=== PATIENT | female | born 1970 | race Caucasian/White ===

== ENCOUNTER → 2017-10-13 | Outpatient (CLI) | payer OTHER ==
[~2017-10-13] MED LIST: ESCI10TA17 PO; ESTR1TAB2 PO
--- NOTE | 2017-10-14 13:38 | MAMMOGRAPHY REPORT ---
BILATERAL DIGITAL SCREENING MAMMOGRAM TOMOSYNTHESIS WITH CAD: 10/13/2017 CLINICAL HISTORY: Routine screening. Patient has no complaints. TECHNIQUE: Breast tomosynthesis in addition to standard 2D mammography was performed. Current study was also evaluated with a Computer Aided Detection (CAD) system. COMPARISON: Comparison is made to exams dated: 10/12/2016 mammogram, 10/09/2015 mammogram, 10/01/2014 mammogram, 09/24/2013 mammogram, 09/21/2012 mammogram, and 09/20/2011 mammogram - [facility]. BREAST COMPOSITION: The tissue of both breasts is almost entirely fatty. FINDINGS: No suspicious masses, calcifications, or areas of architectural distortion are noted in ei ther breast. There has been no significant interval change compared to prior exams. Scattered bilater al benign-appearing calcifications are not significantly changed. IMPRESSION: ACR BI-RADS CATEGORY 2: BENIGN There is no mammographic evidence of malignancy. A 1 year screening mammogram is recommended. The pa tient will receive written notification of the results. Approximately 10% of breast cancers are not detected with mammography. A negative mammographic report should not delay biopsy if a clinically suggestive mass is present. Radha Chambers M.D. /:10/13/2017 16:48:13 Bicycle Designer: Paige PANDA(Leonard)(M), [facility] letter sent: Normal 1/2 BI-RADS Code: ACR BI-RADS Category 2: Benign
== END | disposition home or self-care (01) ==
LOC: C.MAMM 16:00
PROVIDERS: ATTEND Nurse Practitioner
DX: Z12.31 Encounter for screening mammogram for malignant neoplasm of breast (principal)

== ENCOUNTER → 2018-03-01 | Outpatient (CLI) | payer OTHER ==
--- NOTE | 2018-03-01 16:05 | DIAGNOSTIC IMAGING REPORT ---
ULTRASOUND R VENOUS DOPP LOWER EXT UNILAT CLINICAL HISTORY: M79.604 Right leg pain, warmth and swelling on medial right COMPARISON STUDY: No previous studies for comparison. FINDINGS: Real-time and color flow Doppler imaging were performed. Flow was seen within the femoral, popliteal and calf veins with no intraluminal thrombus demonstrated. The saphenous vein is patent. There is a right popliteal cyst measuring 52 x 24 x 15 mm. IMPRESSION: 1. No evidence of right lower extremity DVT 2. Right popliteal cyst Electronically signed by: Dhaval Herrera M.D. 03/01/2018 4:03 PM Dictated Date/Time: 03/01/2018 4:03 PM
== END | disposition home or self-care (01) ==
LOC: C.ULTRBC 14:49
PROVIDERS: ATTEND Physician Assistant Medical
DX: M79.604 Pain in right leg (principal)

== ENCOUNTER 2023-11-29 07:11 | Observation (INO) ==
--- NOTE | 2023-10-24 13:44 | PAT Medication Instructions ---
Medication Instructions Date of Service October 24, 2023 Home Medications Medication Instructions Recorded escitalopram oxalate 5 mg tablet 5 mg PO QAM #90 tabs 12/14/22 lorazepam 0.5 mg tablet 0.5 mg PO DAILY PRN anxiety #30 03/07/23 tabs estradiol 1 mg tablet 1 mg PO QAM #90 tabs 08/08/23 lisinopril 20 mg tablet 20 mg PO QAM #90 tabs 09/12/23 escitalopram oxalate 5 mg tablet 5 mg PO QAM lorazepam 0.5 mg tablet 0.5 mg PO DAILY PRN estradiol 1 mg tablet 1 mg PO QAM lisinopril 20 mg tablet 20 mg PO QAM atorvastatin 20 mg tablet (Lipitor) 20 mg PO QPM etodolac 400 mg tablet 400 mg PO BID PRN omeprazole 20 mg tablet,delayed release 20 mg PO QAM Continue as directed lorazepam 0.5 mg tablet 0.5 mg PO DAILY PRN(if needed) ASK your surgeon for instructions etodolac 400 mg tablet 400 mg PO BID PRN ASK your prescriber and surgeon estradiol 1 mg tablet 1 mg PO QAM DO NOT take the morning of surgery lisinopril 20 mg tablet 20 mg PO QAM Take morning of surgery With a small sip of water, OTHERWISE NOTHING TO EAT OR DRINK AFTER MIDNIGHT: escitalopram oxalate 5 mg tablet 5 mg PO QAM omeprazole 20 mg tablet,delayed release 20 mg PO QAM Take evening before surgery atorvastatin 20 mg tablet (Lipitor) 20 mg PO QPM Other Notes If you have any questions please call us at [phone] or [phone] or [phone] or [phone]
--- NOTE | 2023-10-28 09:20 | Anesthesiology Consultation ---
Date of Service October 28, 2023 Assessment & Plan (1) Encounter for pre-operative examination: - Infectious disease screening: Per assessment on 10/28/23: No known infectious disease contacts or current infectious disease symptoms. No noted recent Covid positive test result. - Outpatient joint assessment: Pt currently scheduled for inpatient pathway. If surgeon requests review for outpatient joint pathway, patient is an acceptable candidate for outpatient joint program from anesthesia standpoint pending surgeon's office assessment that patient is motivated, has good support and completes Same Day Joint Program preop requirements. Chart Review Chart Review: Acceptable Risk for Surgery and Patient seen in Pre Admission Testing Teaching & Discussion Pre-Anesthesia Teaching/Discussion Notes: Instructed NPO after midnight before surgery,except medications with 15 cc of water. Medication instructions provided according to the PAT guidelines. History Surgery Operation Date: 11/29/23 07:15 Proposed Procedures p Left Total Hip Arthroplasty Anterior - Noé Banks, Height/Weight Height: 4 ft 11 in Weight: 79.8 kg Allergies Allergy/AdvReac Type Severity Reaction Status Date / Time No Known Allergies Allergy Unknown Verified 10/24/23 09:42 Medications Home Medications Medication Instructions Recorded Confirmed Last Taken escitalopram oxalate 5 mg tablet 5 mg PO QAM #90 tabs 12/14/22 10/24/23 Unknown lorazepam 0.5 mg tablet 0.5 mg PO DAILY PRN anxiety #30 03/07/23 10/24/23 Unknown tabs estradiol 1 mg tablet 1 mg PO QAM #90 tabs 08/08/23 10/24/23 Unknown lisinopril 20 mg tablet 20 mg PO QAM #90 tabs 09/12/23 10/24/23 Unknown atorvastatin 20 mg tablet (Lipitor) 20 mg PO QPM 10/24/23 10/24/23 Unknown etodolac 400 mg tablet 400 mg PO BID PRN Pain 10/24/23 10/24/23 Unknown omeprazole 20 mg tablet,delayed 20 mg PO QAM 10/24/23 10/24/23 Unknown release Past Medical History Medical History Anxiety Hyperlipidemia History of colon polyps History of COVID-19 Dx 2020- fever, fatigue, loss of taste/smell > resolved HTN (hypertension), benign Papilloma of right breast Depression Obesity Exercise / Class Metabolic Activity II 4-5 Yardwork/Stairs/Walk up hill (one FS (no CP, no SOB)) Past Family History Family History Father Prostate cancer Hypertension Colonic polyp Mother Family history of reaction to anesthesia nausea/vomiting Denies family history of Ovarian cancer Diabetes Myocardial infarction Colorectal cancer Past Surgical History Surgical History History of benign breast biopsy History of carpal tunnel surgery of right wrist History of colonoscopy History of bilateral salpingo-oophorectomy (BSO) History of wisdom tooth extraction H/O umbilical hernia repair H/O: hysterectomy History of delivery Hx of tonsillectomy Past Anesthesia History No Hx of Anesthesia Complications and No Family Hx of Anesthesia Complications (except mother- PONV) History of PONV No Hx of PONV and Hx of Motion Sickness (Cars) Social History Smoking Status: Never smoker Do You Dip or Chew Tobacco: No Hx Alcohol Use: Yes alcohol intake frequency: a few times a month Hx Substance Use: No substance use type: does not use Review of Systems Patient denies chest pain, shortness of breath, dyspnea on exertion, fever, chills, cough, wheezing, palpitations. Physical Exam Vital Signs VITALS BP 142/85 P 70 TEMP 98.0 SP02 100%RA RESP 18 PHYSICAL Full cervical extension range of motion. Full TMJ range of motion. TMD 3 finger breaths Mallampati Score 1 Dentition: lower partial Lungs: clear throughout to auscultation Cardiac: regular rate and rhythm, no murmurs noted Spine: normal Carotid arteries: negative bruit Extremities: no LE edema Lab Results Anesthesia Preop Results Results Anesthesia Widget: WBC 3.93 K/ul (4.8-10.8) L 10/28/23 Hgb 12.1 g/dl (12.0-16.0) 10/28/23 Hct 36.0 % (37.0-47.0) L 10/28/23 Plt 209 K/uL (130-400) 10/28/23 Na 142 mmol/L (136-145) 10/28/23 K 4.3 mmol/L (3.5-5.1) 10/28/23 Cl 107 mmol/L (98-107) 10/28/23 CO2 29 mmol/L (21-32) 10/28/23 BUN 14 mg/dl (6-23) 10/28/23 Creat 0.74 mg/dl (0.6-1.2) 10/28/23 Glucose Level 85 mg/dl (70-99(Fasting)) 10/28/23 PT 11.0 Seconds (9.0-12.0) 10/28/23 PTT 25 Seconds (21-31) 10/28/23 INR 1.0 (0.9-1.1) 10/28/23 Blood Type A Positive 10/28/23 Antibody Screen NEGATIVE 10/28/23 Testing Electrocardiogram Date: 10/28/23 NSR at 75bpm. "Normal ECG" Chest X-Ray Date: 10/28/23 FINDINGS: Lung volumes are normal. Lungs are clear. There is no pneumothorax or pleural effusion. Cardiac size is normal. Mediastinal contours are normal. There is no evidence for pulmonary edema. IMPRESSION: No acute cardiopulmonary findings.
--- NOTE | 2023-11-24 12:11 | History & Physical Report ---
Date of Service November 24, 2023 Assessment & Plan (1) Hip arthritis: We will proceed with a left anterior total of arthroplasty. Postoperatively she will be started on aspirin for DVT prophylaxis and kept overnight in the hospital for postop medical management. She plans to use energy physical therapy upon discharge. History of Present Illness Chief Complaint: Osteoarthritis of the left hip. Primary Care Provider: Portia Carrington MD Carla is a pleasant 53-year-old female who has been dealing with chronic increasing left hip and groin pain. It has been going on for 10 years. It is to the point where she cannot live with it anymore. She is having pain with internal and external rotation. She has seen my partners. She has had injections and conservative treatment. Unfortunately, she continues to have pain. X-rays and clinical examination been diagnostic for advanced arthritis of the left hip. After failed conservative treatment, she has elected to proceed with a left anterior total of arthroplasty. Allergies Allergy/AdvReac Type Severity Reaction Status Date / Time No Known Allergies Allergy Unknown Verified 11/11/23 13:01 Home Medications Medication Instructions Recorded Confirmed Type estradiol 1 mg tablet 1 mg PO QAM #90 tabs 08/08/23 11/11/23 Rx lisinopril 20 mg tablet 20 mg PO QAM #90 tabs 09/12/23 11/11/23 Rx etodolac 400 mg tablet 400 mg PO BID PRN Pain 10/24/23 11/11/23 History omeprazole 20 mg tablet,delayed 20 mg PO QAM 10/24/23 11/11/23 History release amoxicillin 875 mg-potassium 1 tab PO Q12H #20 tabs 11/01/23 11/11/23 Rx clavulanate 125 mg tablet atorvastatin 20 mg tablet (Lipitor) 20 mg PO QPM #90 tabs 11/11/23 11/11/23 Rx escitalopram oxalate 5 mg tablet 5 mg PO QAM #90 tabs 11/11/23 11/11/23 Rx lorazepam 0.5 mg tablet 0.5 mg PO DAILY PRN anxiety #30 11/11/23 11/11/23 Rx tabs Past Med/Surg History Medical History Anxiety Hyperlipidemia History of colon polyps History of COVID-19 Dx 2020- fever, fatigue, loss of taste/smell > resolved HTN (hypertension), benign Papilloma of right breast Depression Obesity Surgical History History of benign breast biopsy History of carpal tunnel surgery of right wrist History of colonoscopy History of bilateral salpingo-oophorectomy (BSO) History of wisdom tooth extraction H/O umbilical hernia repair H/O: hysterectomy History of delivery Hx of tonsillectomy Family History Father Prostate cancer Hypertension Colonic polyp Mother Family history of reaction to anesthesia nausea/vomiting Denies family history of Ovarian cancer Diabetes Myocardial infarction Colorectal cancer Social History Smoking Status: Never smoker Second Hand Exposure: No; Do You Dip or Chew Tobacco: No; Hx Alcohol Use: Yes Hx Substance Use: No Preferred Language: [place] Communication Ability: Effective Nipple Maker Required: No Beliefs That Will Affect Care: None marital status: Current Living Situation: Spouse current occupational status: employed 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 Physical Exam On physical examination of the left hip, she has decreased range of motion. She has pain with forced internal/external rotation.. Constitutional WD/WN, vitals as above Eyes PERRL, conjunctivae normal, anicteric sclerae ENMT external ear and nose normal, oropharynx normal Neck trachea midline, no thyromegaly Respiratory normal respiratory effort Cardiovascular RRR, no murmur, no edema Gastrointestinal (Abdomen) normal bowel sounds, soft, nontender, no hepatosplenomegaly Psychiatric A+Ox3, euthymic affect Results & Data Results & Data Laboratory Results . Diagnostic Findings X-rays of the left hip show advanced osteoarthritis with joint space narrowing, osteophyte formation, and [id number] articulation. PG Care Time/CCT Total # of Minutes Spent Total Time Spent with Patient: Total time spent is greater than 50% in coordination of care (as documented) at patient's floor/unit and/or counseling patient: Coding Level of Care Code None Diagnoses Hip arthritis M16.10
[~2023-11-29 07:11] MED LIST changes: +ACETAMINOPHEN 500 MG TAB PO SCH; +BUPIVACAINE 0.5 % 5 MG/1 ML PF 10ML VIAL ONE; -ESCI10TA17 PO; -ESTR1TAB2 PO; +FAMOTIDINE 20 MG TAB PO SCH; +GABAPENTIN 900 MG DOSE PO SCH; +LR 500ML BOLUS, THEN 15ML/HR IV SCH; +LR 60ML/HR IV SCH; +ROPIV 0.5% 246mg, Ketorolac 30mg, EPINEPHrine 0.5mg in NSS INFIL SCH; +TRANEXAMIC ACID 1,000 MG **IV Intra-op IV SCH; +TRANEXAMIC ACID 1,000 MG **IV Pre-op IV SCH; +ceFAZolin 2000MG 2,000 MG/15 ML SYR IV SCH; +dexAMETHasone**PF** 10 MG/ML VIAL IV SCH
[2023-11-29] MEDS ORDERED: fentaNYL citrate PF 100 MCG/2 ML VIAL IV PRN (08:11)
[2023-11-29] MEDS ORDERED: ONDANSETRON INJ 2 MG/ML 2 ML VIAL IV PRN ×2 (08:11→12:22)
[2023-11-29] MEDS ORDERED: ePHEDrine sulfate 50 MG/ML AMP IV PRN (08:11)
[2023-11-29] MEDS ORDERED: FLUMAZENIL 0.1 MG/1 ML 10 ML VIAL IV PRN (08:11)
[2023-11-29] MEDS ORDERED: HYDROmorphone INJ 1 MG/ML SYRINGE IV PRN (08:11)
[2023-11-29] MEDS ORDERED: PROMETHAZINE HCL 12.5 MG in SODIUM CHLORIDE 0.9% 50 ML IV PRN (08:11)
[2023-11-29] MEDS ORDERED: ATROPINE SULFATE 0.1 MG/ML 10ML SYR IV PRN (08:11)
[2023-11-29] MEDS ORDERED: NALOXONE HCL 0.4 MG/1 ML VIAL/CARP IV PRN ×2 (08:11→12:22)
[2023-11-29] MEDS ORDERED: MIDAZOLAM HCL 1 MG/ML 2ML VIAL ONE (08:20)
[2023-11-29] MEDS ORDERED: PROPOFOL IV EMULSION 10 MG/ML 20 ML VIAL IV ONE ×2 (08:20→10:41)
--- NOTE | 2023-11-29 08:37 | History & Physical Bridge Note ---
Date of Service November 29, 2023 History & Physical Bridge Note I have examined the patient, reviewed the History & Physical and in the interval since the performance of the History & Physical I have noted the following changes of clinical significance: no changes noted
[2023-11-29] MEDS ORDERED: ORTHO JOINT ANESTHETIC ONE (08:39)
--- NOTE | 2023-11-29 10:38 | Fluoroscopy Report ---
FL hip LT 1V CLINICAL HISTORY: LT ANTERIOR ANA LUISA TECHNIQUE: 1 views were obtained with the C-arm in the OR with the above procedure. Total fluoroscopy time was 16.6 seconds. Radiation dose was 1.58 mGy. Comparison: Comparison is made to left hip radiograph 09/25/2023 FINDINGS/IMPRESSION: Intraoperative images were obtained of left anterior total hip arthroplasty. Please correlate with intraoperative fluoroscopy and operative report. ACT 112: Negative or not required by law. Electronically signed by: Yoel Christianson M.D. 11/29/2023 10:37 AM
--- NOTE | 2023-11-29 11:11 | Operative Report ---
PG Post Operative Report Pre & Post Diagnosis Operation Date: 11/29/23 08:55 Pre-Op Diagnosis: Degenerative Joint Disease Hip Left Post-Op Diagnosis: Degenerative Joint Disease Hip Left I identified the patient and participated in the time-out.: Yes Procedure Operation Date: 11/29/23 08:55 Actual Procedures p Left Anterior Total Hip Arthroplasty(Left) - Noé Banks DO Surgeon Noé Banks DO Soil Scientist None Estimated Blood Loss 350 Findings Consistent with Post-Op Diagnosis Specimens Left femoral head Description of Procedure Implants used I used a [employer] total hip arthroplasty system with a size 4 Taperloc stem, a 46 mm G7 cup with a 25mm screw, an E1 polyethylene liner, a 32 mm ceramic head with a -3 neck. Carla arrived at the hospital for the above procedure. She was seen in the preoperative holding area and the operative extremity was identified and signed. She was given a spinal anesthetic, a preoperative antibiotic, and TXA. She was then taken back to the operating room and laid on the table in the supine position. She was given basic sedation. The operative leg was secured to a ristst leg positioner. The hip was then prepped and draped in sterile fashion. A timeout was done and the patient and the operative extremity was properly identified. An anterior approach was used. Dissection was taken down through the fascia and the tensor muscle belly was retracted laterally and the rectus was retracted medially. The circumflex vessels were identified and ligated. The capsule was then incised and tagged for later repair. The femoral neck was then cut and the femoral head was removed. The acetabulum was exposed. Time was spent doing a complete circumferential labral release. Sequential reaming of the acetabulum up to a size 45 reamer was done. Final reamings were done under fluoroscopy to ensure appropriate version. A Biomet 46 mm G7 cup was then impacted into place. A single 25 mm screw was placed. The E1 polyethylene liner was then snapped into place. Surrounding soft tissues were then injected with 100 cc of an orthopedic pain control cocktail. The proximal femur was then exposed. Sequential broaching up to a size 4 broach was done. Off that broach a size 32 head with a -3 neck was trialed. The hip was reduced and fluoroscopic images showed anatomic alignment of the implants in acceptable length. The broach was removed. The final size 4 Taperloc stem was then impacted into place. A ceramic 32 mm head with a -3 neck was then impacted onto the stem and the hip was reduced. Final fluoroscopic images showed anatomic alignment of the hip. The capsule was then closed with #1 Vicryl suture. A dilute betadyne lavage was then done for 3 minutes. The joint was then irrigated with normal saline solution. The fascia was closed with #1 PDS suture. Skin was closed with 2-0 Vicryl, lilibeth, and a Silverlon dressing. She was then transferred to a hospital bed and taken to the post anesthesia care unit in stable condition. She tolerated the procedure well. I attest to the content of the Intraoperative Record and any orders documented therein. Any exceptions are noted below.
--- NOTE | 2023-11-29 11:49 | Anesthesiology Progress Note ---
Date of Service November 29, 2023 Anesthesia Post Procedure Vital Signs Vital Signs: Temp Pulse Resp BP Pulse Ox O2 Del Method O2 Flow Rate 11/29/23 11:35 74 15 119/71 94 Room Air 11/29/23 11:25 77 13 132/75 99 Room Air 11/29/23 11:15 89 16 116/73 100 Room Air 11/29/23 11:05 84 19 122/72 100 Oxymask 8 11/29/23 10:55 72 17 101/57 L 100 Oxymask 8 11/29/23 10:48 36 C L 79 15 101/54 L 100 Oxymask 8 11/29/23 08:01 36.6 C 75 20 152/89 H 95 Room Air Pain Intensity Generalized: Pain Intensity: 3 Transfer of Care Handoff Completed per policy Notes Mental Status: alert / awake / arousable Patient Amnestic to Procedure: Yes Nausea / Vomiting: adequately controlled Pain: adequately controlled Airway Patency, RR, SpO2: stable & adequate BP & HR: stable & adequate Hydration State: stable & adequate Neuraxial Anesthesia: was administered and sensory block is resolving Anesthetic Complications: no major complications apparent
--- NOTE | 2023-11-29 11:52 | XRay Report ---
XR hip 1V LT w pelvis CLINICAL HISTORY: IN PACU - Post Surgical TECHNIQUE: 1 view of the left hip and single frontal view of the pelvis were obtained. Comparison: Comparison is made to hip radiograph 10/25/2023 FINDINGS: Patient is status post total hip arthroplasty with expected postsurgical changes including soft tissu e swelling and subcutaneous emphysema. IMPRESSION: Expected postoperative appearance status post placement of total hip arthroplasty. ACT 112: Negative or not required by law. Electronically signed by: Yoel Christianson M.D. 11/29/2023 11:50 AM
[2023-11-29] MEDS ORDERED: bisacodyL 10 MG SUPP PR PRN (12:22)
[2023-11-29] MEDS ORDERED: oxyCODONE HCL IR 5 MG TAB (IMMEDIATE RELEASE) PO PRN (12:22)
[2023-11-29] MEDS ORDERED: HYDROmorphone INJ 0.5 MG/0.5 ML SYR IV PRN (12:22)
[2023-11-29] MEDS ORDERED: MAGNESIUM HYDROXIDE SUSP 30 ML UDC PO PRN (12:22)
[2023-11-29] MEDS ORDERED: SODIUM CHLORIDE 0.9% 1,000 ML IV SCH (12:22)
[2023-11-29] MEDS ORDERED: LORazepam 0.5 MG TAB PO PRN (12:22)
[2023-11-29] MEDS ORDERED: METOCLOPRAMIDE HCL INJ 5 MG/ML 2 ML VIAL IV PRN (12:22)
[2023-11-29] MEDS: KETOROLAC 30 MG/ML VIAL IV SCH ×2 (13:29→18:08)
[2023-11-29] MEDS: ceFAZolin 2000MG 2,000 MG/15 ML SYR IV SCH (16:19)
[2023-11-29] MEDS: DOCUSATE SODIUM 100 MG CAP PO SCH (20:46)
[2023-11-29] MEDS: ASPIRIN 81 MG ECTAB PO SCH (20:46)
[2023-11-29] MEDS ORDERED: SENNA 8.6 MG TAB PO SCH (21:00)
[2023-11-29] MEDS ORDERED: ATORVASTATIN 20 MG TAB PO SCH (21:00)
[2023-11-30] MEDS: KETOROLAC 30 MG/ML VIAL IV SCH ×2 (00:26→05:08)
[2023-11-30] MEDS: ceFAZolin 2000MG 2,000 MG/15 ML SYR IV SCH (00:26)
[2023-11-30] MEDS ORDERED: dexAMETHasone 4 MG TAB PO SCH (08:00)
[2023-11-30] MEDS ORDERED: ESCITALOPRAM OXALATE 10 MG TAB PO SCH (09:00)
[2023-11-30] MEDS ORDERED: MULTIVITAMIN TAB PO SCH (09:00)
[2023-11-30] MEDS ORDERED: estradioL 1 MG TAB PO SCH (09:00)
[2023-11-30] MEDS ORDERED: PANTOprazole 40 MG TAB PO SCH (09:00)
[2023-11-30] MEDS ORDERED: lisinopril 20 MG TAB PO SCH (09:00)
[2023-11-30] MEDS: DOCUSATE SODIUM 100 MG CAP PO SCH (09:11)
[2023-11-30] MEDS: ASPIRIN 81 MG ECTAB PO SCH (09:11)
--- NOTE | 2023-11-30 10:22 | Orthopedic Progress Note ---
Date of Service November 30, 2023 Assessment & Plan (1) Status post left hip replacement: Overall she is doing quite well today with good pain control to the left hip. She will be seen and evaluated today by physical therapy to work on ambulation and range of motion exercises. She is on aspirin for DVT prophylaxis. She can be discharged home later today pending physical therapy evaluation. She will follow-up with orthopedics in 2 weeks for postoperative care. Ryan Aguirre was seen and evaluated at bedside this morning resting comfortably in no apparent distress. She notes that her pain is well-controlled although today. She has been up and out of bed with no significant issues. She has yet to be seen by physical therapy this morning. She denies any other concerns today. Review of Systems All systems reviewed & are unremarkable except as noted in HPI & below. Physical Exam . On physical examination of left hip, dressings are clean, dry, intact. Her leg is out for extension. She has active plantarflexion dorsiflexion of the left ankle. +2 DP and PT pulses. Less than 2-second capillary refill. Normal sensation. Neurovascular intact. Results & Data Results & Data Laboratory Results . Diagnostic Findings . Postoperative x-rays the left hip show the prosthesis to be in anatomical alignment with no signs of fracture complication or loosening. PG Care Time/CCT Total # of Minutes Spent Total Time Spent with Patient: Total time spent is greater than 50% in coordination of care (as documented) at patient's floor/unit and/or counseling patient: Coding Level of Care Code 61878 Post Operative Follow-Up Diagnoses Status post left hip replacement Z96.642
--- NOTE | 2023-11-30 10:23 | Discharge Summary ---
Date of Service November 30, 2023 Admission HPI (Per Admitting) Carla is a pleasant 53-year-old female who has been dealing with chronic increasing left hip and groin pain. It has been going on for 10 years. It is to the point where she cannot live with it anymore. She is having pain with internal and external rotation. She has seen my partners. She has had injections and conservative treatment. Unfortunately, she continues to have pain. X-rays and clinical examination been diagnostic for advanced arthritis of the left hip. After failed conservative treatment, she has elected to proceed with a left anterior total of arthroplasty. Admission Exam (Per Admitting) On physical examination of the left hip, she has decreased range of motion. She has pain with forced internal/external rotation.. Principal Diagnosis Same as "Discharge Diagnosis" noted below under Discharge Instructions. Discharge Exam . On physical examination of left hip, dressings are clean, dry, intact. Her leg is out for extension. She has active plantarflexion dorsiflexion of the left ankle. +2 DP and PT pulses. Less than 2-second capillary refill. Normal sensation. Neurovascular intact. Discharge Data Procedures Performed Operation Date: 11/29/23 08:55 Actual Procedures p Left Anterior Total Hip Arthroplasty(Left) - Noé Banks, Ordered Studies 11/29/23 08:55 FL hip LT 1V Routine Hospital Course (1) Status post left hip replacement: On November 29, [address] [facility] and underwent a left anterior total hip arthroplasty performed by Dr. Banks with no complications. She had a spinal anesthetic. Postoperatively, she was started on aspirin for DVT prophylaxis and transferred to the general orthopedic floor in stable condition. Her hospital course was uneventful. On postoperative day 1, her pain was well-controlled and her vital signs were stable. She participated well with physical therapy doing ambulation and range of motion exercises. She was then discharged home in stable condition. She will follow-up with orthopedics in 2 weeks for postoperative care. PG Care Time/CCT Total # of Minutes Spent Total Time Spent with Patient: Total time spent is greater than 50% in coordination of care (as documented) at patient's floor/unit and/or counseling patient: Discharge Plan Discharge Items Patient Disposition: Home - Home Health Services Reason For Visit: DJD Hip Left Discharge Diagnosis: Same Activity: Per Instructions section Non-emergency contact: Surgeon Call non-emergency contact if: your temperature is above 101.5, your wound has increased redness and your wound has increased drainage Follow-up/Referrals: Portia Carrington MD [Primary Care Provider] - Diet: Regular Addtl Attending Provider Instructions: Activity and Therapy Recommendations: * If you are using [facility] then therapy will be provided at your home until they feel you have accomplished all of your goals. * If you are using [facility] then Physical Therapy will be provided until they feel you are ready to start Outpatient Physical Therapy. * If you are not using home therapy then Outpatient Physical Therapy should start about 3-5 days from your day of surgery. Therapy will last about 6-10 weeks * You were shown a series of exercises in the hospital. Do these exercises three times each day including the exercises you were shown in physical therapy. * Get up and walk several times each day.~ For the first four weeks, try not to stand or walk for more than one hour at a time. If you do stand or walk for more than one hour, you will not hurt anything, but your leg will likely swell.~~ * As you feel comfortable, you may change from the walker or crutches to a cane and~then to independent walking. Medications: * Narcotic You will likely be sent home from the hospital with a prescription for the narcotic pain medication that worked best throughout your stay. * Cefadroxil -take the antibiotic twice a day for 10 days to help prevent infection. * Aspirin Most patients will be required to take Aspirin 81mg twice a day for 6 weeks after surgery. This is obtained [id number] and a prescription is not necessary. * Other medications may be prescribed for specific circumstances. If you have any questions, please call the office at . * Resume previous home medications unless otherwise instructed TEDs/Elastic Stockings: The white elastic stockings help limit swelling and prevent blood clots from forming in your legs. The more you wear them, the more they work. Wear them for six weeks. Dressing Care: Leave the Silverlon dressing in place for 7 days. After 7 days you may remove the dressing. If the incision is not draining then you may leave the lilibeth open to air. If there is a little bit of drainage or if the lilibeth are getting stuck on your clothing then cover the incision with a dry dressing. The lilibeth will be removed at your 2 week follow-up appointment. Showering: You may shower with the Silverlon dressing in place. Do not let the shower spray hit the dressing directly. Pat the Silverlon dressing dry. If the dressing becomes wet underneath, then simply remove the dressing. Keep the incision dry until you are 7 days out from the day of surgery. After 7 days you may remove the Silverlon dressing and shower with the lilibeth exposed. Let soapy water run over the lilibeth and pat them dry. Do not scrub or soak the incision. Things To Watch For: * Drainage from the incision site that occurs more than one week after your surgery. * Increased redness at the incision site. * Fever above 102 degrees Fahrenheit. * Unusual chest pain or shortness of breath. * Call [facility] at with any of the above problems Follow-Up Visit: Follow-up with Dr. Banks's PA (Noé Hatfield) 2-3 weeks after your day of surgery. He will remove your lilibeth and answer any questions. If you have any additional questions or concerns, Dr Banks is usually in the office at the same time and will be available An appointment was probably scheduled when you signed-up for surgery in the office. If you have any questions call Office Instructions: More detailed instructions as well as Frequently Asked Questions were provided in a folder by our office when you signed-up for surgery. Please review these instructions when you get home. If you have any further questions or concerns, please feel free to call the office at [phone] Pending Studies at Discharge: No Stand-Alone Forms: My [facility] [employer], Smoking Cessation Medications and DC Order Prescriptions: New aspirin 81 mg Tablet,Delayed Release (Dr/Ec) 81 mg PO BID 42 Days Qty: 0 0RF oxycodone 5 mg Tablet 5 mg PO Q6 PRN (Reason: pain) Qty: 30 0RF cefadroxil 500 mg capsule 500 mg PO BID 10 Days Qty: 20 0RF Continued estradiol 1 mg tablet 1 mg PO QAM Qty: 90 2RF lisinopril 20 mg tablet 20 mg PO QAM Qty: 90 0RF amoxicillin-pot clavulanate 875-125 mg tablet 1 tab PO Q12H Qty: 20 0RF lorazepam 0.5 mg tablet 0.5 mg PO DAILY PRN (Reason: anxiety) Qty: 30 3RF escitalopram oxalate 5 mg tablet 5 mg PO QAM Qty: 90 2RF atorvastatin [Lipitor] 20 mg tablet 20 mg PO QPM Qty: 90 2RF etodolac 400 mg tablet 400 mg PO BID PRN (Reason: Pain) omeprazole 20 mg tablet,delayed release (DR/EC) 20 mg PO QAM Admission Data Admit Date/Time: 11/29/23 11:15 Attending Provider: Noé Banks Admit Provider: Noé Banks Primary Care Provider: Portia Carrington
== END 2023-11-30 11:26 | disposition home health service (06) ==
LOC: ASU 07:11 → 3E 07:11